=== PATIENT | female | born 1970 ===

== ENCOUNTER 2023-04-06 23:09 | Emergency (ER) | payer BC ==
[2023-04-06 23:25] LABS: APPEARANCE,URINE CLOUDY (CLEAR); BILIRUBIN,URINE NEGATIVE (NEGATIVE); COLOR,URINE RED (YELLOW); GLUCOSE,URINE NEGATIVE (NEGATIVE); KETONES,URINE NEGATIVE (NEGATIVE); LEUKOCYTE ESTERASE,URINE LARGE (NEGATIVE); NITRITE,URINE NEGATIVE (NEGATIVE); OCCULT BLOOD,URINE LARGE (NEGATIVE); PH,URINE 6.5 (5.0-8.0); PROTEIN,URINE 100 mg/dL (NEGATIVE); UROBILINOGEN,URINE 0.2 EU/dL (0.2-1.0)
[2023-04-06 23:29] LABS: BACTERIA,URINE MANY; EPITHELIAL CELLS,URINE NOT SEEN; MUCUS,URINE NOT SEEN; RBC,URINE 20-30 (0-5); WBC,URINE SEMI-PACKED (0-5)
[2023-04-06 23:30] LABS: AMORPHOUS SEDIMENT,URINE NOT SEEN
[2023-04-07] MEDS: cefTRIAXone 1 GM Vial IM ONE (00:03)
[2023-04-07] MEDS: Lidocaine 2% 5 ML SDV INJECT ONE ×2 (00:05→00:11)
[2023-04-07] MEDS: Lidocaine 2% 20 ML MDV ONE (14:50)
== END 2023-04-07 00:12 | disposition home or self-care (01) ==
LOC: JP.ED 23:09
DX: N39.0 Urinary tract infection, site not specified (principal); Z88.2 Allergy status to sulfonamides
CPT/HCPCS: 81001; 96372; 99284; J0696